=== PATIENT | female | born 1975 | race Caucasian/White ===

== ENCOUNTER 2024-04-09 17:06 | Emergency (ER) | payer BC, SELFPAY ==
--- NOTE | ~2024-04-09 | XR_ITS ---
EXAMINATION: XR chest 2V DATE: 04/09/2024 18:32 INDICATION: Abnormal lung sounds. COVID-19. TECHNIQUE: Frontal and lateral views of the chest were obtained. COMPARISON: None. FINDINGS: There is mild scarring at the lung apices. There is no pneumonia, pleural effusion, or pneu mothorax. The heart size is normal. IMPRESSION: 1. Mild scarring at the lung apices. Reviewed, dictated and finalized at location A. RTISING SALES MANAGER
[2024-04-09 17:28] VITALS: BP 128/72; PULSE 99; RESP 18; TEMP 36.8; O2SAT 100
--- NOTE | 2024-04-09 18:12 | ED_ITS ---
HPI - URI/Sore Throat General Chief Complaint: Upper Respiratory Infection Stated Complaint: tiredness Time Seen by Provider: 04/09/24 18:12 Source: patient, RN notes reviewed and old records reviewed Mode of arrival: ambulatory Limitations: no limitations History of Present Illness HPI Narrative: Patient diagnosed with COVID 1 week ago presents with complaints of continued fever and cough. She reports fever has been as high as 104. She reports that she is taking DayQuil for her symptoms. Not taking any other medication. She is in no distress on arrival. Denies any shortness of breath. Does report that she is more tired than normal. Is complaining of some associated body aches. also complaining of some right ear pain.No other complaints today Related Data Allergies Allergy/AdvReac Type Severity Reaction Status Date / Time No Known Allergies Allergy Verified 04/09/24 17:38 Review of Systems Review of Systems: All systems reviewed & are unremarkable except as noted in HPI and below Constitutional: Constitutional: Reports as per HPI, Reports no additional constitutional complaints, Reports fever(s), Reports headache(s) and Reports lethargy ENT: Reports system reviewed and no additional complaints, except as documented, Reports otalgia and Reports nasal discharge Cardiovascular: Cardiovascular: Reports no additional cardiovascular complaints Respiratory: Respiratory: Reports no additional respiratory complaints, Reports chest congestion and Reports cough Gastrointestinal: Gastrointestinal: Reports no additional gastrointestinal complaints PMFSH Family History Family History Grandparent Hypertension Family history of malignant neoplasm of stomach Family history of coronary artery disease Family history of malignant neoplasm of ovary Other Cerebrovascular accident Diabetes mellitus Malignant neoplasm of prostate Social History Social History Smoking status: Never smoker Alcohol intake: never Comments At the time of my signature, I reviewed and agree with the nursing past medical, surgical, social, and family history. There is no relevant family history pertinent to the patient complaint. Exam Const: General: cooperative, no acute distress, alert, awake and tired appearing Orientation/consciousness: oriented to person, oriented to place and oriented to time HENMT: Head: normal to inspection Ears: TM's normal bilaterally Mouth: Yes moist mucous membranes Throat: posterior oropharynx abnormal erythema Resp: Effort & Inspection: normal respiratory effort and able to speak in complete sentences Auscultation: clear to auscultation bilaterally, crackles on the right in the lower lung pru[place], no rales, no rhonchi and no wheezes Cardio: Palpation: normal PMI Rate: regular rate Rhythm: regular rhythm Heart sounds: S1 normal heart sound present and S2 normal heart sound present Neuro: General: oriented to person, oriented to place and oriented to time Cranial nerves: Yes CN's II-XII intact bilaterally Psych: Appearance: grossly normal Thought process: Normal thought process present Insight: Good insight present (Psych) Judgement: Good judgement present (Psych) Course Course Level of Care: Express Care Visit Vital Signs Vital signs: Vital Signs Temperature 98.3 F 04/09/24 17:28 Pulse Rate 99 04/09/24 17:28 Respiratory Rate 18 04/09/24 17:28 Blood Pressure 128/72 04/09/24 17:28 Pulse Oximetry 100 04/09/24 17:28 Oxygen Delivery Room Air 04/09/24 17:28 Temperature 98.3 F 04/09/24 17:28 Pulse Rate 99 04/09/24 17:28 Respiratory Rate 18 04/09/24 17:28 Blood Pressure 128/72 04/09/24 17:28 Pulse Oximetry 100 04/09/24 17:28 Oxygen Delivery Room Air 04/09/24 17:28 Reviewed MDM - URI/Sore Throat MDM Narrative Medical decision making narrative: chest x-ray without acute findings. Start prednisone and bronchodilator. Patient is nontoxic appearing. Stable for discharge home. Discharge instructions reviewed with patient, as well as provided in writing per nursing staff. The instructions also include specific and strict return/GO TO THE ER as well as f/u information. All questions have been answered, and the patient deny any further questions with discharge and discharge plan. Some parts of this dictation were generated by voice recognition software and may contain typographical and/or grammatical inaccuracies. Differential Diagnosis Differential diagnosis: Likely upper respiratory infection, otitis media, viral infection, influenza and pharyngitis Medical Records Attestation: I reviewed the patient's medical records. Lab Data Attestation: I reviewed the patient's lab results. Imaging Data Attestation: I personally reviewed and interpreted this imaging study as follows: My impression: No acute findings Radiologist's impression: [facility] [address] [address] XRay Report Signed Patient: Loli Nolasco : 1975 MR#: [id number] Age: 48 Acct:[id number] Loc: [facility] ADM Date: 04/09/24Attending Dr: Ordering Physician: Melanie Henderson FNP Date of Service: 04/09/24 Procedure(s): XR chest 2V Accession Number(s): [id number] cc: Melanie Henderson FNP; UNKNOWN,DOCTOR~ EXAMINATION: XR chest 2V DATE: 04/09/2024 18:32 INDICATION: Abnormal lung sounds. COVID-19. TECHNIQUE: Frontal and lateral views of the chest were obtained. COMPARISON: None. FINDINGS: There is mild scarring at the lung apices. There is no pneumonia, pleural effusion, or pneumothorax. The heart size is normal. IMPRESSION: 1. Mild scarring at the lung apices. Reviewed, dictated and finalized at location A. RELIEF OPERATOR Dictated By: Joshua Dobbs MD 04/09/241843 Signed By: <Electronically signed by Joshua Dobbs MD in OV> 04/09/241844 Discharge Plan Discharge Clinical Impression: COVID-19 Patient Disposition: Home, Self-Care Condition: Stable Instructions: Antibiotic Form, COVID-19: Slow the Coronavirus Spread (ED) Additional Instructions: Take medication as prescribed. Follow with primary care provider. Emergency department for new or worse Patient Language: Zimbabwean Prescriptions: New prednisone 50 mg tablet 50 mg PO DAILY Qty: 5 0RF albuterol sulfate [Ventolin HFA] 90 mcg/actuation HFA aerosol inhaler 2 puff inhalation QID PRN (Reason: shortness of breath or wheezing) Qty: 8.5 0RF Follow-up/Referrals: UNKNOWN,DOCTOR [Primary Care Provider] - Stand Alone Forms: Work/School Release IP Time of Disposition: 18:53
== END 2024-04-09 18:57 | disposition home or self-care (01) ==
PROVIDERS: Emergency Provider Nurse Practitioner Family
DX: U07.1 COVID-19 (principal)
CPT/HCPCS: 71046; 99213; G0463

== ENCOUNTER 2025-02-12 09:02 | Emergency (ER) | payer BC, SELFPAY ==
[2025-02-12 09:13] VITALS: BP 114/59; PULSE 77; RESP 18; TEMP 36.5; O2SAT 97
--- NOTE | 2025-02-12 09:16 | ED_ITS ---
HPI - Ear Problem General Chief complaint: Ear Stated complaint: R Ear Patient presents to the [facility] with complaints significant right ear pain and drainage from the right ear. Patient noted that she has a long history of ear infections. Patient reports taking Advil this morning with some relief of symptoms. Patient does report taking her daily Zyrtec due to longstanding seasonal allergies in his harvest season which does affect her. Denies any fever, chills, body aches, dizziness, sinus pain, headaches, or shortness of breath. Related Data Allergies Allergy/AdvReac Type Severity Reaction Status Date / Time No Known Allergies Allergy Verified 02/12/25 09:13 Review of Systems Constitutional: Constitutional: Reports as per HPI, Denies chills, Denies fa tigue and Denies fever(s) Eyes: Eyes: Reports no additional eye complaints ENT: Reports as per HPI, Denies vertigo, Denies dizziness, Reports nasal congestion and Denies sore throat Comments: Right ear pain, right ear drainage Cardiovascular: Cardiovascular: Reports no additional cardiovascular complaints Respiratory: Respiratory: Reports as per HPI, Denies chest congestion, Reports cough, Denies dyspnea and Denies wheezing Gastrointestinal: Gastrointestinal: Reports no additional gastrointestinal complaints Genitourinary: Genitourinary: Reports no additional female genitourinary complaints Musculoskeletal: Musculoskeletal: Reports no additional musculoskeletal complaints Integumentary/Breasts: Skin/Breast: Reports as per HPI, Denies pruritus, Denies erythema and Denies rash Neurologic: Reports as per HPI, Denies vertigo, Denies dizziness, Denies headache(s), Denies focal weakness and Denies weakness Psychiatric: Psychiatric: Reports no additional psychiatric complaints Endocrine: Endocrine: Reports no additional endocrine complaints Hematologic/Lymphatic: Hematologic/Lymphatic: Reports no additional hematologic/lymphatic complaints Allergic/Immunologic: Allergic/Immunologic: Reports as per HPI Comments: seasonal allergies PMFSH Family History Family History Grandparent Hypertension Family history of malignant neoplasm of stomach Family history of coronary artery disease Family history of malignant neoplasm of ovary Other Cerebrovascular accident Diabetes mellitus Malignant neoplasm of prostate Social History Social History Smoking status: Never smoker Alcohol intake: never Exam Const: General: healthy appearing and no acute distress Nutritional Appearance: well nourished Orientation/consciousness: patient oriented x3 Limitations: no limitations HENMT: Head: normal to inspection Ears: external ears normal and TM's abnormal bilaterally Face/Nose/Sinus: Normal external nose present and Normal nares present Face and sinus: normal facial exam and sinuses nontender Mouth: Yes Normal oral and palatal mucosa present, Yes lip normal and Yes moist mucous membranes Throat: posterior oropharynx normal Other: right TM moderate erythema with loss of bony landmarks and significant retraction. No rupture noted. Left TM mild dullness with scarring no erythema or loss of bony landmarks noted Neck: Neck: normal visual inspection and no lymphadenopathy Resp: Effort & Inspection: normal respiratory effort Auscultation: clear to auscultation bilaterally Cardio: Rate: regular rate Rhythm: regular rhythm Skin: General skin exam: normal color Rashes: no rashes Wounds: no wounds Neuro: General: patient oriented x3 and moves all extremities Speech: normal speech Gait exam (Neuro): Normal gait present Psych: Mental Status: mental status grossly normal Affect: normal affect Attitude: cooperative Course Course Level of Care: Express Care Visit Vital Signs Vital signs: Vital Signs Temperature 97.7 F 02/12/25 09:13 Pulse Rate 77 02/12/25 09:13 Respiratory Rate 18 02/12/25 09:13 Blood Pressure 114/59 L 02/12/25 09:13 Pulse Oximetry 97 02/12/25 09:13 Oxygen Delivery Room Air 02/12/25 09:13 Temperature 97.7 F 02/12/25 09:13 Pulse Rate 77 02/12/25 09:13 Respiratory Rate 18 02/12/25 09:13 Blood Pressure 114/59 L 02/12/25 09:13 Pulse Oximetry 97 02/12/25 09:13 Oxygen Delivery Room Air 02/12/25 09:13 Medical Decision Making MDM Narrative Medical decision making narrative: mild ear infection noted with significant history of ear infections will treat. Educated patient on use of Flonase nasal spray. The patient was evaluated by myself in the express care. History is obtained from patient who is an independent historian and physical exam was performed. Available medical records were reviewed at this time. Exam findings show no acute concerns or changes; patient is non-toxic appearing and is in no distress. Patient is appropriate for outpatient treatment and follow-up. I have evaluated and discussed social determinants of health with the patient that could potentially impact subsequent diagnosis and treatment plans. Differential diagnosis and treatment plan were discussed with the patient. Patient agrees with discussion and after shared medical decision making agrees with plan of care. All questions were answered to the patient's satisfaction. Differential Diagnosis Differential Diagnosis: AOM, sinusitis, upper respiratory infection, otalgia Medical Records Medical records reviewed: Yes I reviewed the external patient's medical records. Vital Signs Vital Signs: Vital Signs Temperature 97.7 F 02/12/25 09:13 Pulse Rate 77 02/12/25 09:13 Respiratory Rate 18 02/12/25 09:13 Blood Pressure 114/59 L 02/12/25 09:13 Pulse Oximetry 97 02/12/25 09:13 Oxygen Delivery Room Air 02/12/25 09:13 Temperature 97.7 F 02/12/25 09:13 Pulse Rate 77 02/12/25 09:13 Respiratory Rate 18 02/12/25 09:13 Blood Pressure 114/59 L 02/12/25 09:13 Pulse Oximetry 97 02/12/25 09:13 Oxygen Delivery Room Air 02/12/25 09:13 Discharge Plan Discharge Clinical Impression: Acute otitis media, right Patient Disposition: Home Condition: Stable Instructions: Antibiotic Form, Ear Infection (ED) Additional Instructions: Take the antibiotics until gone. May use probiotics or yogurt daily to help with upset stomach /diarrhea with antibiotic use. May use Tylenol and ibuprofen to help with pain or fever. May use warm compresses to the outside of the ear to help with pain. Can also use Sudafed and Flonase nasal spray to help with symptoms associated with ear infection and help the ears drain. Follow-up with primary care physician if symptoms not improving or worsen. Patient Language: Danish Prescriptions: New amoxicillin 875 mg tablet 875 mg PO Q12H Qty: 20 0RF fluticasone propionate [Flonase Allergy Relief] 50 mcg/actuation spray,suspension 2 spray intranasal DAILY Qty: 16 0RF Rx Instructions: administer into each nostril Follow-up/Referrals: Andrea,Cesar Ritter MD [Primary Care Provider] Time of Disposition: 09:27
== END 2025-02-12 09:30 | disposition home or self-care (01) ==
PROVIDERS: Emergency Provider Nurse Practitioner Family; PCP Family Medicine
DX: H66.91 Otitis media, unspecified, right ear (principal)
CPT/HCPCS: 99213; G0463